=== PATIENT | female | born 1950 | race Hispanic/Latino ===

== ENCOUNTER 2020-06-18 15:54 | Emergency (ER) | payer MEDICARE ==
[~2020-06-18 15:54] MED LIST: LISI-613 PO
[2020-06-18] MEDS ORDERED: ACETAMINOPHEN 325 MG TAB ONE (16:14)
== END 2020-06-18 17:27 | disposition home or self-care (01) ==
LOC: EDH 15:54
DX: S82.65XA Nondisplaced fracture of lateral malleolus of left fibula, initial encounter for closed fracture (principal); W18.39XA Other fall on same level, initial encounter; Y93.01 Activity, walking, marching and hiking; Y92.89 Other specified places as the place of occurrence of the external cause; Y99.8 Other external cause status
CPT/HCPCS: 29125; 29515; 73610

== ENCOUNTER 2021-02-27 17:56 | Observation (INO) | payer OTHER, MEDICARE ==
[~2021-02-27] VITALS: Ht 167.6 cm; Wt 57.5 kg
[~2021-02-27 17:56] MED LIST changes: -LISI-613 PO; +LISI20TA24 PO
[2021-02-27 19:06] VITALS: BP 111/53
[2021-02-27 19:35] LABS: APPEARANCE,URINE Clear (CLEAR); BILIRUBIN,URINE Negative (NEGATIVE); COLOR,URINE Yellow (YELLOW); GLUCOSE, URINE (UA) Negative (NEGATIVE); KETONES,URINE Negative (NEGATIVE); LEUKOCYTE ESTERASE ,URINE Small (NEGATIVE); NITRATE,URINE Negative (NEGATIVE); OCCULT BLOOD,URINE Moderate (NEGATIVE); PROTEIN,URINE Negative (NEGATIVE)
[2021-02-27 19:41] LABS: BASOPHILS % (AUTO) 0.4 % (0.0-5.0); EOSINOPHILS % (AUTO) 2.1 % (0.0-8.0); HEMATOCRIT 34.2 % (36-48); LYMPHOCYTES % (AUTO) 20.4 % (21.0-51.0); MEAN CORPUSCULAR HEMOGLOBIN 30.3 pg (27.0-33.0); MEAN CORPUSCULAR HGB CONC 31.9 g/dL (32.0-36.0); MONOCYTES % (AUTO) 10.6 % (3.0-13.0); NEUTROPHILS % (AUTO) 66.2 % (40.0-77.0); PLATELET COUNT (AUTO) 299 K/uL (130-400); RED CELL DISTRIBUTION WIDTH 13.9 % (11.0-15.5); WHITE BLOOD COUNT (AUTO) 7.5 K/uL (4.8-10.8)
[2021-02-27 19:45] VITALS: BP_SYST 116; BP_SYST 119; BP_DIAS 36; BP_DIAS 41
[2021-02-27 19:46] VITALS: BP 127/46
[2021-02-27 19:52] LABS: BACTERIA,URINE Few /HPF (None Seen); MUCUS,URINE Few LPF (None Seen); SQUAMOUS EPITHELIAL CELL,UR Few /HPF (0-2)
[2021-02-27 19:56] LABS: CREATININE 0.8 mg/dL (0.5-1.5); POTASSIUM 4.3 mmol/L (3.5-5.1)
[2021-02-27 19:59] LABS: INR 0.94 (0.85-1.15); PROTHROMBIN TIME 10.3 SEC (9.6-11.6)
[2021-02-27 20:00] LABS: ALBUMIN 3.7 g/dL (3.5-5.0); BILIRUBIN,TOTAL 0.3 mg/dL (0.2-1.0); PARTIAL THROMBOPLASTIN TIME 23.1 SEC (26.3-35.5); TOTAL PROTEIN, SERUM 7.3 g/dL (6.0-8.3)
[2021-02-27] MEDS ORDERED: LABETALOL 20MG VIAL IV PRN (21:30)
[2021-02-27] MEDS ORDERED: NITROGLYCERIN 0.4 MG SL TAB SL PRN (21:30)
[2021-02-27] MEDS ORDERED: ACETAMINOPHEN 325 MG TAB PO PRN ×2 (21:30)
[2021-02-27] MEDS ORDERED: ONDANSETRON 4MG INJ IV PRN (21:30)
[2021-02-27] MEDS ORDERED: ZOLPIDEM TARTRATE 5 MG TAB PO PRN (21:30)
[2021-02-27 21:31] VITALS: BP 134/47
[2021-02-27] MEDS: 0.9%NACL 1000ML 1,000 ML IV SCH (21:54)
[2021-02-27] MEDS: PANTOPRAZOLE 40 MG/VIAL IVP SCH (22:17)
[2021-02-27 22:57] VITALS: BP 123/51
[2021-02-27 23:10] VITALS: BP 146/42
[2021-02-27] MEDS: MORPHINE 2 MG SYG IV PRN (23:46)
[2021-02-28 03:50] VITALS: BP 151/72
[2021-02-28] MEDS: 0.9%NACL 1000ML 1,000 ML IV SCH (05:35)
[2021-02-28] MEDS ORDERED: CEFTRIAXONE 1G VIAL ONE (06:30)
[2021-02-28] MEDS ORDERED: CEFTRIAXONE 1G VIAL IVP SCH (06:30)
[2021-02-28 06:38] LABS: HEMATOCRIT 25.5 % (36-48); MEAN CORPUSCULAR HEMOGLOBIN 29.7 pg (27.0-33.0); MEAN CORPUSCULAR HGB CONC 31.4 g/dL (32.0-36.0); MEAN CORPUSCULAR VOLUME 94.8 fL (79-99); PLATELET COUNT (AUTO) 232 K/uL (130-400); RED BLOOD CELL COUNT(AUTO) 2.69 MIL/uL (4.00-5.50); RED CELL DISTRIBUTION WIDTH 13.9 % (11.0-15.5); WHITE BLOOD COUNT (AUTO) 6.1 K/uL (4.8-10.8)
[2021-02-28 06:57] LABS: ALBUMIN 2.7 g/dL (3.5-5.0); BILIRUBIN,TOTAL 0.3 mg/dL (0.2-1.0); CREATININE 0.8 mg/dL (0.5-1.5); POTASSIUM 3.9 mmol/L (3.5-5.1); TOTAL PROTEIN, SERUM 5.3 g/dL (6.0-8.3)
[2021-02-28 08:00] VITALS: BP 113/40
[2021-02-28 08:50] LABS: BAND NEUTROPHILS % (MANUAL) 1 % (0-2); EOSINOPHILS % (MANUAL) 1 % (1-6); LYMPHOCYTES % (MANUAL) 45 % (22-44); MAN.DIFF COMMENT-IMPRESSION MANUAL DIFFERENTIAL; MONOCYTES % (MANUAL) 5 % (2-9); PLATELET MORPHOLOGY COMMENT ADEQUATE; SEGMENTED NEUTROPHILS % 48 % (40-70)
[2021-02-28] MEDS ORDERED: LISINOPRIL 20 MG TABLET PO SCH (09:00)
[2021-02-28] MEDS: PANTOPRAZOLE 40 MG/VIAL IVP SCH (09:12)
[2021-02-28 09:18] LABS: HEMATOCRIT 26.3 % (36-48)
[2021-02-28] MEDS ORDERED: CHLORDIAZEPOXIDE HCL 25 MG CAP PO PRN (09:30)
[2021-02-28] MEDS ORDERED: LORAZEPAM 2 MG/ML 1 ML VIAL IM PRN (09:30)
[2021-02-28] MEDS ORDERED: PIP/TAZ ZOSYN 3.375G 3.375 GM VIAL IVPB ONE (09:30)
[2021-02-28] MEDS ORDERED: THIAMINE HCL 100 MG/ML 2ML VIAL IVP SCH (09:30)
[2021-02-28] MEDS ORDERED: HYDRALAZINE 20MG/ML VIAL IV PRN (09:30)
[2021-02-28] MEDS ORDERED: OCTREOTIDE ACETATE 1,250 MCG in 0.9% NACL 250ML 250 ML IV SCH (09:30)
[2021-02-28] MEDS ORDERED: M.V.I. IV [ADULT] 10 ML, FOLIC ACID 1 MG, THIAMINE HCL 400 MG in 0.9%NACL 1000ML 1,000 ML IV SCH (09:38)
[2021-02-28] MEDS ORDERED: IPRATROPIUM 0.5 MG/2.5 ML INH IH PRN (10:00)
[2021-02-28] MEDS ORDERED: 0.9%NACL 50ML 50 ML IV SCH (10:30)
[2021-02-28] MEDS ORDERED: ZOSYN 3.375GM +NS 50ML IV SCH (10:30)
[2021-02-28 14:37] LABS: HEMATOCRIT 27.8 % (36-48)
[2021-02-28 14:57] LABS: CREATINE KINASE, TOTAL 64 U/L (21-232); MYOGLOBIN 50 ng/mL (10-92); TROPONIN I < 0.04 ng/mL (0.00-0.06)
[2021-02-28] MEDS: MORPHINE 2 MG SYG IV PRN (15:13)
[2021-02-28 16:00] VITALS: BP 128/60
[2021-02-28] MEDS ORDERED: PEG 3350/NA SULF,BICARB,CL/KCL 4000 ML SOLN PO SCH (17:00)
[2021-02-28 19:59] VITALS: BP 149/98
[2021-02-28] MEDS: PANTOPRAZOLE 40MG INJ 80 MG in 0.9%NACL 100ML 100 ML IVP SCH (20:09)
[2021-02-28 21:23] LABS: HEMATOCRIT 27.2 % (36-48)
[2021-02-28 21:47] LABS: CREATINE KINASE, TOTAL 65 U/L (21-232); MYOGLOBIN 64 ng/mL (10-92); TROPONIN I < 0.04 ng/mL (0.00-0.06)
[2021-03-01] VITALS (19 sets, daily range): BP systolic 92–161; BP diastolic 44–107
[2021-03-01 03:30] LABS: HEMATOCRIT 25.8 % (36-48); MEAN CORPUSCULAR HGB CONC 31.4 g/dL (32.0-36.0); MEAN CORPUSCULAR VOLUME 92.5 fL (79-99); RED BLOOD CELL COUNT(AUTO) 2.79 MIL/uL (4.00-5.50); RED CELL DISTRIBUTION WIDTH 13.7 % (11.0-15.5); WHITE BLOOD COUNT (AUTO) 4.8 K/uL (4.8-10.8)
[2021-03-01] MEDS: 0.9%NACL 1000ML 1,000 ML IV SCH ×2 (03:30→05:21)
[2021-03-01] MEDS ORDERED: PHARMACY COMMUNICATION MISC SCH (03:30)
[2021-03-01 04:10] LABS: ALANINE AMINOTRANSFERASE 19 U/L (12-78); ALBUMIN 2.6 g/dL (3.5-5.0); ASPARTATE AMINOTRANSFERASE 17 U/L (10-37); BILIRUBIN,TOTAL 0.3 mg/dL (0.2-1.0); CARBON DIOXIDE 31 mmol/L (21-32); CHLORIDE 109 mmol/L (101-111); CREATINE KINASE, TOTAL 56 U/L (21-232); CREATININE 0.8 mg/dL (0.5-1.5); GLOMERULAR FILTR. RATE CALC 76 mL/min (>60); GLUCOSE,RANDOM 95 mg/dL (70-105); MYOGLOBIN 50 ng/mL (10-92); POTASSIUM 3.8 mmol/L (3.5-5.1); SODIUM SERUM 144 mmol/L (136-145); TOTAL PROTEIN, SERUM 5.1 g/dL (6.0-8.3); TROPONIN I < 0.04 ng/mL (0.00-0.06); UREA NITROGEN, BLOOD 8 mg/dL (7-18)
[2021-03-01] MEDS ORDERED: CEFTRIAXONE 1G VIAL IVP SCH (07:00)
[2021-03-01] MEDS: PANTOPRAZOLE 40MG INJ 80 MG in 0.9%NACL 100ML 100 ML IVP SCH (08:11)
[2021-03-01] MEDS ORDERED: THIAMINE HCL 100 MG/ML 2ML VIAL IVP SCH (09:00)
[2021-03-01] MEDS ORDERED: M.V.I. IV [ADULT] 10 ML, FOLIC ACID 1 MG, THIAMINE HCL 300 MG in 0.9%NACL 1000ML 1,000 ML IV NR (09:00)
[2021-03-01] MEDS ORDERED: PROPOFOL 10 MG/ML 20ML VIAL IV ONE ×2 (09:01)
[2021-03-01] MEDS ORDERED: LIDOCAINE PF 100MG/5ML (2%) SYRINGE 5ML ONE (09:01)
[2021-03-01] MEDS ORDERED: GLYCOPYRROLATE 1 MG/5 ML SYRINGE ONE (09:01)
[2021-03-01 11:38] LABS: HEMATOCRIT 28.5 % (36-48)
[2021-03-01] MEDS: MORPHINE 2 MG SYG IV PRN (12:48)
[2021-03-01] MEDS ORDERED: PANTOPRAZOLE 40 MG/VIAL IVP ONE (13:00)
[2021-03-01] MEDS ORDERED: FERR324T23 PO (13:40)
[2021-03-01] MEDS ORDERED: PSYL660P17 PO (13:40)
[2021-03-01] MEDS ORDERED: PANTOPRAZOLE 40 MG/VIAL ONE (14:52)
[2021-03-01] MEDS ORDERED: PANTOPRAZOLE 40 MG/VIAL IVP SCH (21:00)
[2021-03-01] MEDS ORDERED: LISINOPRIL 20 MG TABLET PO SCH (21:00)
== END 2021-03-01 17:20 | disposition home or self-care (01) ==
LOC: EDH 17:56 → EDHIP 20:59 → 3DH 23:07 → 4AH 02-28 11:45
PROVIDERS: ADMIT Internal Medicine Critical Care Medicine; ATTEND Internal Medicine Critical Care Medicine
DX: K62.5 Hemorrhage of anus and rectum (principal); D50.0 Iron deficiency anemia secondary to blood loss (chronic); F14.10 Cocaine abuse, uncomplicated; F10.10 Alcohol abuse, uncomplicated; F17.210 Nicotine dependence, cigarettes, uncomplicated; I70.0 Atherosclerosis of aorta; I10 Essential (primary) hypertension; K57.31 Diverticulosis of large intestine without perforation or abscess with bleeding; K44.9 Diaphragmatic hernia without obstruction or gangrene; K59.00 Constipation, unspecified; K64.9 Unspecified hemorrhoids; H91.90 Unspecified hearing loss, unspecified ear
CPT/HCPCS: 36415 ×3; 45378; 71045; 74176; 80053 ×3; 81001; 82270; 82550 ×3; 83874 ×3; 84484 ×3; 85014 ×4; 85018 ×4; 85025 ×2; 85027; 85610; 85730; 86850; 86900; 86901; 94664; 96361 ×3; 96365; 96366 ×2; 96367; 96368; 96375 ×2; 96376 ×3; 99285; A4215; A4222; A4223; A4620; C9113 ×5; G0378 ×42; J0696; J2001; J2354; J2543; J2704 ×2; J3411 ×2; J3490 ×3; J7030 ×6; J7050